=== PATIENT | female | born 1950 | race Caucasian/White ===

== ENCOUNTER 2019-08-08 12:43 | Emergency (ER) | payer MEDICARE, BC ==
[2019-08-08 13:04] VITALS: BP 137/66; PULSE 40
[2019-08-08] MEDS ORDERED: Oxymetazoline 0.05% Nasal Spray 30 ML Bottle NAS ONE (13:08)
[2019-08-08] MEDS ORDERED: Lidocaine 1% with EPINEPHrine 1:100,000 20 ML MDV INJECT ONE (13:08)
--- NOTE | 2019-08-08 14:57 | EDM.PDOC ---
ED HPI GENERAL MEDICAL PROBLEM - General Chief Complaint: ENT Problem Stated Complaint: NOSE BLEED Time Seen by Provider: 08/08/19 13:05 Source of Information: Reports: Patient History Limitations: Reports: No Limitations - History of Present Illness INITIAL COMMENTS - FREE TEXT/NARRATIVE: The patient presents with a nosebleed out of the left nostril. This started this morning and she cannot get it stopped. She is on coumadin and she is on home oxygen as well. She has no trauma to her nose. This will happen sometimes because or the oxygen. Onset: Sudden Duration: Hour(s): Location: Reports: Other (Left nostril) Severity: Moderate Improves with: Reports: None Worsens with: Reports: None Associated Symptoms: Reports: No Other Symptoms - Related Data Allergies Allergy/AdvReac Type Severity Reaction Status Date / Time No Known Allergies Allergy Verified 08/08/19 13:05 Home Meds: Home Meds Albuterol [Ventolin HFA] 2 puff INH Q6H 01/23/15 [History] Aspirin [Halfprin] 81 mg PO DAILY 01/23/15 [History] Digoxin 250 mcg PO DAILY 01/23/15 [History] Diltiazem HCl [Diltiazem 24Hr Cd] 240 mg PO DAILY 01/23/15 [History] Fluticasone/Salmeterol [Advair 100-50] 1 puff INH BID 01/23/15 [History] Metoprolol Succinate [Toprol XL] 50 mg PO DAILY 01/23/15 [History] Warfarin Sodium [Jantoven] 5 mg PO DAILY 01/23/15 [History] atorvaSTATin [Lipitor] 10 mg PO DAILY 01/23/15 [History] Furosemide 80 mg PO BID 08/08/19 [History] Levothyroxine 25 mcg PO DAILY 08/08/19 [History] Spironolactone [Aldactone] 25 mg PO DAILY 08/08/19 [History] cloNIDine [Catapres-TTS 1] 0.1 mg PO DAILY 08/08/19 [History] Past Medical History HEENT History: Reports: Impaired Vision Cardiovascular History: Reports: Afib, Heart Failure, High Cholesterol, Hypertension, Other (See Below) Other Cardiovascular History: bradycardia 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 History: 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: Endocrine/Metabolic History: Reports: Hypothyroidism - Past Surgical History Cardiovascular Surgical History: Reports: Valve Replacement Female Surgical History: Reports: Hysterectomy Social & Family History - Family History Family Medical History: Noncontributory - Tobacco Use Smoking Status *Q: Former Smoker Used Tobacco, but Quit: Yes Month/Year Tobacco Last Used: 07/2016 - Caffeine Use Caffeine Use: Reports: Coffee ED ROS ENT - Review of Systems Review Of Systems: See Below Constitutional: Reports: No Symptoms HEENT: Reports: Nosebleed (Left nostril) Respiratory: Reports: No Symptoms Cardiovascular: Reports: No Symptoms Endocrine: Reports: No Symptoms GI/Abdominal: Reports: No Symptoms : Reports: No Symptoms Musculoskeletal: Reports: No Symptoms ED EXAM, ENT - Physical Exam Exam: See Below Exam Limited By: No Limitations General Appearance: Alert, No Apparent Distress Ears: Normal External Exam Nose: Active Bleeding (Deep inside) Mouth/Throat: Normal Inspection Head: Atraumatic, Normocephalic Neck: Normal Inspection, Supple, Non-Tender Respiratory/Chest: No Respiratory Distress, Lungs Clear, Normal Breath Sounds Cardiovascular: Regular Rate, Rhythm, No Edema, No Murmur GI/Abdominal: Normal Bowel Sounds, Soft, Non-Tender, No Organomegaly, No Mass Back: Normal Inspection Extremities: Normal Inspection Neurological: Alert, Oriented, No Motor/Sensory Deficits ED ENT PROCEDURES - Epistaxis Procedure Indication: Epistaxis Recent anticoagulants/antiplatlets: Yes Uncontrolled HTN: No Recent septal/nasal surgery: No Site of bleeding: Left Nare Topical Meds: Phenylephrine, Other (TXA and lidocaine with epinephrine) Ice pack to area: No Chemical cautery: Silver Nitrate Topical Anterior Packing: Petrolatum Guaze Strip Complications: No Course - Vital Signs Last Recorded V/S: Last Vital Signs Temp 98.6 F 08/08/19 12:57 Pulse 40 L 08/08/19 12:57 Resp 23 H 08/08/19 12:57 BP 137/66 08/08/19 12:57 Pulse Ox 99 08/08/19 12:57 - Orders/Labs/Meds Labs: Laboratory Tests 08/08/19 Range/Units 13:29 PT 42.7 H (9.7-12.0) SECONDS INR 4.25 Meds: Medications Discontinued Medications Generic Name Dose Route Start Last Admin Trade Name Freq PRN Reason Stop Dose Admin Lidocaine/Epinephrine 20 ml 08/08/19 13:08 08/08/19 13:29 Xylocaine 1% With Epinephrine 1:100,000 INJECT 08/08/19 13:09 1 ml ONETIME ONE Administration Oxymetazoline HCl 5 ml 08/08/19 13:08 08/08/19 13:28 Nasal Decongestant [place] KG 08/08/19 13:09 5 ml ONETIME ONE Administration Tranexamic Acid 1,000 mg 08/08/19 13:07 08/08/19 13:28 Cyklokapron IVPUSH 08/08/19 13:08 100 mg ONETIME ONE Administration - Re-Assessments/Exams Free Text/Narrative Re-Assessment/Exam: 08/08/19 14:56 I tried to use silver nitrate to stop the bleeding but I could not. I then packed it with petroleum gauze. Her INR is elevated at 4.25. 08/08/19 15:28 She has very minimal bleeding at times. I will have her hold her coumadin tomorrow and have her INR rechecked on Sunday and have the packing taken out. Departure - Departure Time of Disposition: 15:30 Disposition: Home, Self-Care 01 Condition: Good Clinical Impression: Epistaxis - Discharge Information *PRESCRIPTION DRUG MONITORING PROGRAM REVIEWED*: Not Applicable *COPY OF PRESCRIPTION DRUG MONITORING REPORT IN PATIENT DIXON: Not Applicable Referrals: Myrna Coley MD [Primary Care Provider] - Forms: ED Department Discharge Additional Instructions: Do not take your coumadin tomorrow. Have your INR checked on Sunday. Have the packing taken out on Sunday. Please return if you are worse. Sepsis Event Note - Evaluation Sepsis Screening Result: No Definite Risk - Focused Exam Vital Signs: Vital Signs Temp Pulse Resp BP Pulse Ox 08/08/19 12:57 98.6 F 40 L 23 H 137/66 99 Date Exam was Performed: 08/08/19 Time Exam was Performed: 15:28
== END 2019-08-08 16:03 | disposition home or self-care (01) ==
LOC: JD.ED 12:43
DX: R04.0 Epistaxis (principal); I11.0 Hypertensive heart disease with heart failure; I50.9 Heart failure, unspecified; J44.9 Chronic obstructive pulmonary disease, unspecified; I48.91 Unspecified atrial fibrillation; E78.00 Pure hypercholesterolemia, unspecified; E03.9 Hypothyroidism, unspecified; Z79.82 Long term (current) use of aspirin; Z79.51 Long term (current) use of inhaled steroids; Z79.01 Long term (current) use of anticoagulants; Z79.899 Other long term (current) drug therapy; Z79.890 Hormone replacement therapy; Z87.891 Personal history of nicotine dependence
CPT/HCPCS: 30901; 36415; 85610; 99283; A9270; 99282

== ENCOUNTER 2019-08-10 06:27 | Emergency (ER) | payer MEDICARE, BC ==
[2019-08-10 06:56] VITALS: BP 145/65; PULSE 68
[2019-08-10] MEDS ORDERED: Oxymetazoline 0.05% Nasal Spray 30 ML Bottle NAS ONE (07:12)
--- NOTE | 2019-08-10 07:24 | EDM.PDOC ---
ED HPI GENERAL MEDICAL PROBLEM - General Chief Complaint: ENT Problem Stated Complaint: NOSE BLEED Time Seen by Provider: 08/10/19 06:58 Source of Information: Reports: Patient, RN Notes Reviewed - History of Present Illness INITIAL COMMENTS - FREE TEXT/NARRATIVE: 69-year-old female comes in with left-sided nosebleed. Troubles actually started Sunday 2 days ago. Evaluated here in the ED, had her left nares cauterized and packed. The packing fell out late last evening and she has had intermittent bleeding from the left side since that time. She is on Coumadin, her INR 2 days ago was elevated and the 4.3 range. Not taken her Coumadin yesterday or today. She is on home oxygen and that is not helping her using the nasal cannula 24 7. - Related Data Allergies Allergy/AdvReac Type Severity Reaction Status Date / Time No Known Allergies Allergy Verified 08/10/19 06:59 Home Meds: Home Meds Albuterol [Ventolin HFA] 2 puff INH Q6H 01/23/15 [History] Aspirin [Halfprin] 81 mg PO DAILY 01/23/15 [History] Digoxin 250 mcg PO DAILY 01/23/15 [History] Diltiazem HCl [Diltiazem 24Hr Cd] 240 mg PO DAILY 01/23/15 [History] Fluticasone/Salmeterol [Advair 100-50] 1 puff INH BID 01/23/15 [History] Metoprolol Succinate [Toprol XL] 50 mg PO DAILY 01/23/15 [History] Warfarin Sodium [Jantoven] 5 mg PO DAILY 01/23/15 [History] atorvaSTATin [Lipitor] 10 mg PO DAILY 01/23/15 [History] Furosemide 80 mg PO BID 08/08/19 [History] Levothyroxine 25 mcg PO DAILY 08/08/19 [History] Spironolactone [Aldactone] 25 mg PO DAILY 08/08/19 [History] cloNIDine [Catapres-TTS 1] 0.1 mg PO DAILY 08/08/19 [History] Cephalexin [Keflex] 500 mg PO Q8HR #10 capsule 08/10/19 [Rx] Past Medical History HEENT History: Reports: Impaired Vision Cardiovascular History: Reports: Afib, Heart Failure, High Cholesterol, Hypertension, Other (See Below) Other Cardiovascular History: bradycardia 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: Endocrine/Metabolic History: Reports: Hypothyroidism - Past Surgical History Cardiovascular Surgical History: Reports: Valve Replacement Female Surgical History: Reports: Hysterectomy Social & Family History - Family History Family Medical History: Noncontributory - Tobacco Use Smoking Status *Q: Never Smoker Second Hand Smoke Exposure: No - Caffeine Use Caffeine Use: Reports: Coffee - Recreational Drug Use Recreational Drug Use: No ED ROS ENT - Review of Systems Review Of Systems: See Below Constitutional: Denies: Fever, Chills, Diaphoresis HEENT: Reports: Nosebleed Respiratory: Reports: Shortness of Breath (Mild, chronically) Cardiovascular: Denies: Chest Pain GI/Abdominal: Denies: Abdominal Pain, Nausea, Vomiting Musculoskeletal: Reports: No Symptoms Skin: Reports: No Symptoms Neurological: Reports: No Symptoms ED EXAM, ENT - Physical Exam Exam: See Below General Appearance: Alert Nose: Other (Large amount of clot left nares, when the clots were blown out mild oozing septal area) Mouth/Throat: Normal Inspection Head: Atraumatic Neck: Supple Respiratory/Chest: No Respiratory Distress, Lungs Clear, Normal Breath Sounds Cardiovascular: Regular Rate, Rhythm Extremities: Normal Inspection Neurological: Alert, Oriented, No Motor/Sensory Deficits Skin: Warm, Dry, Normal Color ED ENT PROCEDURES - Epistaxis Procedure Indication: Epistaxis Recent anticoagulants/antiplatlets: Yes Uncontrolled HTN: No Site of bleeding: Left Nare Clearing of clots: Patient Blew Nose Topical Meds: Phenylephrine Anterior Packing: Other (7.5 cm AP nasal balloon) Course - Vital Signs Last Recorded V/S: Last Vital Signs Temp 98.7 F 08/10/19 06:52 Pulse 68 08/10/19 06:52 Resp 32 H 08/10/19 06:52 BP 145/65 H 08/10/19 06:52 Pulse Ox 89 L 08/10/19 06:52 - Orders/Labs/Meds Labs: Laboratory Tests 08/10/19 08/10/19 Range/Units 07:29 07:29 WBC 16.41 H (3.98-10.04) K/mm3 RBC 4.42 (3.98-5.22) M/mm3 Hgb 11.6 D (11.2-15.7) gm/dl Hct 37.9 (34.1-44.9) % MCV 85.7 (79.4-94.8) fl MCH 26.2 (25.6-32.2) pg MCHC 30.6 L (32.2-35.5) g/dl RDW Std Deviation 51.1 H (36.4-46.3) fL Plt Count 418 H D (182-369) K/mm3 MPV 9.3 L (9.4-12.3) fl Neut % (Auto) 79.5 H (34.0-71.1) % Lymph % (Auto) 11.6 L (19.3-51.7) % [place] % (Auto) 5.7 (4.7-12.5) % Eos % (Auto) 2.9 (0.7-5.8) Baso % (Auto) 0.1 (0.1-1.2) % Neut # (Auto) 13.04 H (1.56-6.13) K/mm3 Lymph # (Auto) 1.91 (1.18-3.74) K/mm3 [place] # (Auto) 0.94 H (0.24-0.36) K/mm3 Eos # (Auto) 0.47 H (0.04-0.36) K/mm3 Baso # (Auto) 0.02 (0.01-0.08) K/mm3 Manual Slide Review Normal smear PT 24.5 H D (9.7-12.0) SECONDS INR 2.36 Meds: Medications Discontinued Medications Generic Name Dose Route Start Last Admin Trade Name Duranq PRN Reason Stop Dose Admin Cephalexin 500 mg 08/10/19 08:29 Keflex PO 08/10/19 08:30 ONETIME ONE Cocaine HCl 4 ml 08/10/19 07:12 08/10/19 07:28 Cocaine Hcl TOP 08/10/19 07:13 4 ml ONETIME ONE Administration Oxymetazoline HCl 2 ml 08/10/19 07:12 08/10/19 07:31 Nasal Decongestant [place] KG 08/10/19 07:13 2 ml ONETIME ONE Administration - Re-Assessments/Exams Free Text/Narrative Re-Assessment/Exam: 08/10/19 08:38 I did work with some Afrin nasal spray left nares and then also 4% cocaine solution with cotton. She continued to bleed from left posterior nares after that so did place a 7.5 cm AP balloon Rhino Rocket. Rated procedure well, no further bleeding. INR came back at 2.36 today. Discharge instructions as documented. Departure - Departure Time of Disposition: 08:32 Disposition: Home, Self-Care 01 Condition: Fair Clinical Impression: Epistaxis - Discharge Information Prescriptions: Cephalexin [Keflex] 500 mg PO Q8HR #10 capsule Referrals: Myrna Coley MD [Primary Care Provider] - Forms: ED Department Discharge Additional Instructions: Your INR today was 2.36. Do not take your coumadin today as discussed but resume that tomorrow usual dosage. Cephalexin 500 mg 3 times daily. Prescription has been sent electronically to [facility]. Rest. Drink plenty of water to maintain hydration. Your balloon should come out Sunday or . That can be done by one of the clinic providers or you can return to the ED to have it removed if the clinic does not work out. Return to ED as needed. Sepsis Event Note - Evaluation Sepsis Screening Result: No Definite Risk - Focused Exam Vital Signs: Vital Signs Temp Pulse Resp BP Pulse Ox 08/10/19 06:52 98.7 F 68 32 H 145/65 H 89 L Date Exam was Performed: 08/10/19 Time Exam was Performed: 08:37
[2019-08-10] MEDS ORDERED: Cephalexin 500 MG Cap PO ONE (08:29)
== END 2019-08-10 08:46 | disposition home or self-care (01) ==
LOC: JD.ED 06:27
DX: R04.0 Epistaxis (principal); I11.0 Hypertensive heart disease with heart failure; I50.9 Heart failure, unspecified; I48.91 Unspecified atrial fibrillation; J44.9 Chronic obstructive pulmonary disease, unspecified; E03.9 Hypothyroidism, unspecified; Z79.01 Long term (current) use of anticoagulants; Z79.82 Long term (current) use of aspirin; Z79.899 Other long term (current) drug therapy
CPT/HCPCS: 30901; 36415; 85025; 85610; 99283; A9270

== ENCOUNTER 2019-08-12 10:50 | Emergency (ER) | payer MEDICARE, BC ==
--- NOTE | 2019-08-12 11:42 | EDM.PDOC ---
ED HPI GENERAL MEDICAL PROBLEM - General Chief Complaint: ENT Problem Stated Complaint: REMOVAL OF PACKING FOR NOSEBLEED Time Seen by Provider: 08/12/19 11:22 Source of Information: Reports: Patient, Old Records, RN Notes Reviewed History Limitations: Reports: No Limitations - History of Present Illness INITIAL COMMENTS - FREE TEXT/NARRATIVE: Patient is a 69-year-old female who presents to the ED for removal of a Rhino Rocket was placed a few days ago. This was done in this ER by Dr. Up. This did achieve appropriate hemostasis at this time. The triage nurse did remove the packing at her time of triage, but the left naris did start bleeding again. So a nasal clamp was placed to apply pressure. Patient states that she is on blood thinners but has not been taking her Coumadin for the past few days , and she did resume taking her Coumadin as previously scheduled today. She does note that over the past few days it's been pretty rough, she is had a headache, not been able to sleep much and has had to sleep in her recliner due to the Rhino Rocket and subsequent pain. Otherwise she has no complaints. Patient is oxygen dependent as well, and does wear portal oxygen concentrator via nasal cannula. - Related Data Allergies Allergy/AdvReac Type Severity Reaction Status Date / Time No Known Allergies Allergy Verified 08/10/19 06:59 Home Meds: Home Meds Albuterol [Ventolin HFA] 2 puff INH Q6H 01/23/15 [History] Aspirin [Halfprin] 81 mg PO DAILY 01/23/15 [History] Digoxin 250 mcg PO DAILY 01/23/15 [History] Diltiazem HCl [Diltiazem 24Hr Cd] 240 mg PO DAILY 01/23/15 [History] Fluticasone/Salmeterol [Advair 100-50] 1 puff INH BID 01/23/15 [History] Metoprolol Succinate [Toprol XL] 50 mg PO DAILY 01/23/15 [History] Warfarin Sodium [Jantoven] 5 mg PO DAILY 01/23/15 [History] atorvaSTATin [Lipitor] 10 mg PO DAILY 01/23/15 [History] Furosemide 80 mg PO BID 08/08/19 [History] Levothyroxine 25 mcg PO DAILY 08/08/19 [History] Spironolactone [Aldactone] 25 mg PO DAILY 08/08/19 [History] cloNIDine [Catapres-TTS 1] 0.1 mg PO DAILY 08/08/19 [History] Cephalexin [Keflex] 500 mg PO Q8HR #10 capsule 08/10/19 [Rx] Past Medical History HEENT History: Reports: Epistaxis, Impaired Vision Cardiovascular History: Reports: Afib, Heart Failure, High Cholesterol, Hypertension, Other (See Below) Other Cardiovascular History: bradycardia 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 Denies: Sinus Problem Respiratory: Denies: Shortness of Breath Cardiovascular: Denies: Chest Pain Hematologic/Lymphatic: Reports: Easy Bleeding (on coumadin) ED EXAM, ENT - Physical Exam Exam: See Below Exam Limited By: No Limitations General Appearance: Alert, WD/WN, No Apparent Distress Nose: Active Bleeding (L nare, RN placed clamp for pressure at time of triage after packing was removed, this instantly started bleeding after the packing was removed) Respiratory/Chest: No Respiratory Distress, Lungs Clear, Normal Breath Sounds, No Accessory Muscle Use, Chest Non-Tender Cardiovascular: Normal Peripheral Pulses, Regular Rate, Rhythm, No Murmur Extremities: Normal Inspection, Normal Capillary Refill Neurological: Alert, Oriented, Normal Cognition, No Motor/Sensory Deficits Psychiatric: Normal Affect, Normal Mood Skin: Warm, Dry, Intact, Normal Color, No Rash Course - Vital Signs Last Recorded V/S: Last Vital Signs Temp 97.8 F 08/12/19 11:19 Pulse 73 08/12/19 11:19 Resp 16 08/12/19 11:19 BP 144/87 H 08/12/19 11:19 Pulse Ox 95 08/12/19 11:19 - Orders/Labs/Meds Labs: Laboratory Tests 08/12/19 Range/Units 11:54 PT 18.8 H (9.7-12.0) SECONDS INR 1.78 - Re-Assessments/Exams Free Text/Narrative Re-Assessment/Exam: 08/12/19 11:41 Patient presents to the ED for packing removal. Unfortunately her nose did start bleeding from the left nare when the packing was removed. Pressure has been applied, it is likely that if the pressure does not stop the bleed, we might need to replace a Rhino Rocket and have her follow-up with ENT for removal of this in a few days rather than coming to the ER for removal. 08/12/19 12:27 Patient was reevaluated at bedside, and she does not have the clamp on her nose and the bleeding has seemed to stop at this time. 08/12/19 13:12 Labs have been ran, and PT is 18.8 and INR is 1.78. Departure - Departure Time of Disposition: 13:21 Disposition: Home, Self-Care 01 Condition: Fair Clinical Impression: Encounter for removal of nasal pack, Epistaxis - Discharge Information *PRESCRIPTION DRUG MONITORING PROGRAM REVIEWED*: No *COPY OF PRESCRIPTION DRUG MONITORING REPORT IN PATIENT DIXON: No Instructions: Nosebleed, [id number] Referrals: Myrna Coley MD [Primary Care Provider] - Forms: ED Department Discharge Additional Instructions: You were evaluated in the ER today regarding your left-sided nasal packing. This was taken out, and subsequently you started bleeding from the left nare again. Pressure was applied, and this did stop the bleeding at this time. Please refrain from taking your warfarin dose for the next 2 days, to help try to prevent more nasal bleeding. You may use your saline moisturizing gel to your naris as previously directed, please be gentle while doing this as to not aggravate the tissue in your nose to prevent further bleeding. Please return to the ER if your symptoms change or worsen. Sepsis Event Note - Evaluation Sepsis Screening Result: No Definite Risk - Focused Exam Vital Signs: Vital Signs Temp Pulse Resp BP Pulse Ox 08/12/19 11:19 97.8 F 73 16 144/87 H 95 Date Exam was Performed: 08/12/19 Time Exam was Performed: 13:21
[2019-08-12 13:54] VITALS: BP 148/56; PULSE 62
== END 2019-08-12 13:45 | disposition home or self-care (01) ==
LOC: JD.ED 10:50
DX: R04.0 Epistaxis (principal); Z48.00 Encounter for change or removal of nonsurgical wound dressing; I11.0 Hypertensive heart disease with heart failure; I50.9 Heart failure, unspecified; E78.00 Pure hypercholesterolemia, unspecified; I48.91 Unspecified atrial fibrillation; J44.9 Chronic obstructive pulmonary disease, unspecified; E03.9 Hypothyroidism, unspecified; Z79.82 Long term (current) use of aspirin; Z79.01 Long term (current) use of anticoagulants; Z79.899 Other long term (current) drug therapy
CPT/HCPCS: 36415; 85610; 99282; 99283

== ENCOUNTER 2020-08-13 23:54 | Emergency (ER) | payer MEDICARE, BC ==
[2020-08-14 00:02] VITALS: PULSE 58
--- NOTE | 2020-08-14 00:17 | EDM.PDOC ---
ED HPI GENERAL MEDICAL PROBLEM - General Chief Complaint: Neuro Symptoms/Deficits Stated Complaint: [facility] Time Seen by Provider: 08/13/20 23:57 - History of Present Illness INITIAL COMMENTS - FREE TEXT/NARRATIVE: 70-year-old female presents the emergency room brought in by EMS with worsening headache and left-sided weakness. This headache probably started Sunday and has progressively gotten worse. She had some weakness on the left side associated with this. The exact onset of this is unclear. It was definitely noticeable this morning, Sunday morning. The patient has fallen several times today just to the point where the cannot help her anymore. The patient has a history of A. fib and is on Coumadin. Also has a mechanical heart valve, the cannot recall what type but says it stainless steel. She has not had any chest pain or chest pressure and other than her headache does not hurt anywhere. - Related Data Allergies Allergy/AdvReac Type Severity Reaction Status Date / Time No Known Allergies Allergy Verified 08/14/20 00:03 Home Meds: Home Meds Albuterol [Ventolin HFA] 2 puff INH Q6H 01/23/15 [History] Digoxin 250 mcg PO ASDIRECTED 01/23/15 [History] Fluticasone/Salmeterol [Advair 100-50] 1 puff INH BID 01/23/15 [History] Warfarin Sodium [Jantoven] 5 mg PO DAILY 01/23/15 [History] atorvaSTATin [Lipitor] 10 mg PO DAILY 01/23/15 [History] Furosemide 80 mg PO BID 08/08/19 [History] Levothyroxine 25 mcg PO ASDIRECTED 08/08/19 [History] Spironolactone [Aldactone] 25 mg PO DAILY 08/08/19 [History] Digoxin 125 mcg PO ASDIRECTED 08/14/20 [History] Levothyroxine Sodium [Levothyroxine] 50 mcg PO ASDIRECTED 08/14/20 [History] Metoprolol Succinate [Toprol XL] 25 mg PO BID 08/14/20 [History] Nitroglycerin [Nitrostat] 0.4 mg SL DAILY PRN 08/14/20 [History] amLODIPine Besylate [Amlodipine Besylate] 10 mg PO DAILY 08/14/20 [History] metFORMIN [Glucophage] 500 mg PO DAILY 08/14/20 [History] Past Medical History HEENT History: Reports: Epistaxis, Impaired Vision Cardiovascular History: Reports: Afib, Heart Failure, High Cholesterol, Hyp ertension, Other (See Below) Other Cardiovascular History: bradycardia Respiratory History: Reports: COPD [employer] History: Reports: Endocrine/Metabolic History: Reports: Hypothyroidism - Past Surgical History Cardiovascular Surgical History: Reports: Valve Replacement Female Surgical History: Reports: Hysterectomy Social & Family History - Family History Family Medical History: No Pertinent Family History - Caffeine Use Caffeine Use: Reports: Coffee ED ROS GENERAL - Review of Systems Review Of Systems: See Below Constitutional: Reports: Weakness, Fatigue. Denies: Fever HEENT: Reports: No Symptoms Respiratory: Reports: No Symptoms Cardiovascular: Reports: Dyspnea on Exertion, Edema. Denies: Chest Pain Endocrine: Reports: No Symptoms GI/Abdominal: Reports: No Symptoms : Reports: No Symptoms Musculoskeletal: Reports: No Symptoms Skin: Reports: No Symptoms Neurological: Reports: Headache, Weakness, Gait Disturbance Psychiatric: Reports: No Symptoms Hematologic/Lymphatic: Reports: Easy Bruising Immunologic: Reports: No Symptoms ED EXAM, NEURO - Physical Exam Exam: See Below Exam Limited By: No Limitations General Appearance: Alert, Moderate Distress (Little slow to respond but generally doing okay), Other Eye Exam: Bilateral Eye: EOMI, Normal Inspection, PERRL Ears: Normal External Exam, Normal Canal, Hearing Grossly Normal, Normal TMs Throat/Mouth: Normal Inspection, Normal Lips, Normal Teeth, Normal Gums, Normal Oropharynx, Normal Voice, No Airway Compromise Head Exam: Atraumatic, Normocephalic Neck: Normal Inspection. No: Lymphadenopathy (L), Lymphadenopathy (R) Respiratory/Chest: No Respiratory Distress, Lungs Clear, Normal Breath Sounds Cardiovascular: Normal Peripheral Pulses, Bradycardia (Usually in the 50s symmetry she has frequent PVCs multifocal at times), Systolic Murmur (It is difficult to assess his murmur with everything going on in the exam room) GI/Abdominal: Normal Bowel Sounds, Soft, Non-Tender Neurological: Other (Has some weakness on the left side this is definitely noticeable but she still retained most of her muscle function) Back Exam: Normal Inspection. No: CVA Tenderness (L), CVA Tenderness (R) Extremities: Other (2-3+ pitting edema bilateral apparently this is ongoing) Psychiatric: Normal Affect Skin Exam: Warm, Dry, Intact Course - Vital Signs Last Recorded V/S: Last Vital Signs Temp 36.3 C 08/13/20 23:57 Pulse 58 L 08/13/20 23:57 Resp 18 08/13/20 23:57 BP 134/55 L 08/14/20 00:15 Pulse Ox 91 L 08/14/20 00:00 - Orders/Labs/Meds Orders: Active Orders 24 hr Category Date Time Status EKG Documentation Completion [RC] STAT Care 08/14/20 00:05 Active Chest 1V Frontal [CR] Stat Exams 08/14/20 00:05 Taken Head wo Cont [CT] Routine Exams 08/14/20 00:15 Taken Labs: Laboratory Tests 08/13/20 08/13/20 08/13/20 Range/Units 23:57 23:57 23:57 WBC 12.08 H (3.98-10.04) K/mm3 RBC 5.34 H (3.98-5.22) M/mm3 Hgb 12.9 (11.2-15.7) gm/dl Hct 42.2 (34.1-44.9) % MCV 79.0 L D (79.4-94.8) fl MCH 24.2 L (25.6-32.2) pg MCHC 30.6 L (32.2-35.5) g/dl RDW Std Deviation 50.7 H (36.4-46.3) fL Plt Count 479 H (182-369) K/mm3 MPV 8.8 L (9.4-12.3) fl Neut % (Auto) 84.2 H (34.0-71.1) % Lymph % (Auto) 7.5 L (19.3-51.7) % Wirt % (Auto) 7.0 (4.7-12.5) % Eos % (Auto) 0.9 (0.7-5.8) Baso % (Auto) 0.2 (0.1-1.2) % Neut # (Auto) 10.18 H (1.56-6.13) K/mm3 Lymph # (Auto) 0.90 L (1.18-3.74) K/mm3 Wirt # (Auto) 0.84 H (0.24-0.36) K/mm3 Eos # (Auto) 0.11 (0.04-0.36) K/mm3 Baso # (Auto) 0.02 (0.01-0.08) K/mm3 Manual Slide Review Abnormal smear PT > 90.0 H* (9.7-12.0) SECONDS INR > 8.00 H* APTT 62.3 H (21.7-31.4) SECONDS Sodium 142 (136-145) mEq/L Potassium 4.1 (3.5-5.1) mEq/L Chloride 102 (98-107) mEq/L Carbon Dioxide 34 H (21-32) mEq/L Anion Gap 10.1 (5-15) BUN 17 (7-18) mg/dL Creatinine 1.4 H (0.55-1.02) mg/dL Est Cr Clr Drug Dosing 33.16 mL/min Estimated GFR (MDRD) 37 (>60) mL/min BUN/Creatinine Ratio 12.1 L (14-18) Glucose 130 H (83-115) mg/dL POC Glucose (83-110) mg/dL Calcium 9.4 (8.5-10.1) mg/dL Magnesium (1.8-2.4) mg/dl Total Bilirubin 0.5 (0.2-1.0) mg/dL AST 25 (15-37) U/L ALT 25 (14-59) U/L Alkaline Phosphatase 138 H (46-116) U/L Troponin I < 0.017 (0.00-0.056) ng/mL NT-Pro-B Natriuret Pep (0-125) pg/mL Total Protein 7.9 (6.4-8.2) g/dl Albumin 3.4 (3.4-5.0) g/dl Globulin 4.5 gm/dL Albumin/Globulin Ratio 0.8 L (1-2) Digoxin (0.9-2.0) ng/mL SARS-CoV-2 RNA (STEFANIE) (NEGATIVE) 08/13/20 08/13/20 08/13/20 Range/Units 23:57 23:57 23:57 WBC (3.98-10.04) K/mm3 RBC (3.98-5.22) M/mm3 Hgb (11.2-15.7) gm/dl Hct (34.1-44.9) % MCV (79.4-94.8) fl MCH (25.6-32.2) pg MCHC (32.2-35.5) g/dl RDW Std Deviation (36.4-46.3) fL Plt Count (182-369) K/mm3 MPV (9.4-12.3) fl Neut % (Auto) (34.0-71.1) % Lymph % (Auto) (19.3-51.7) % Wirt % (Auto) (4.7-12.5) % Eos % (Auto) (0.7-5.8) Baso % (Auto) (0.1-1.2) % Neut # (Auto) (1.56-6.13) K/mm3 Lymph # (Auto) (1.18-3.74) K/mm3 Wirt # (Auto) (0.24-0.36) K/mm3 Eos # (Auto) (0.04-0.36) K/mm3 Baso # (Auto) (0.01-0.08) K/mm3 Manual Slide Review PT (9.7-12.0) SECONDS INR APTT (21.7-31.4) SECONDS Sodium (136-145) mEq/L Potassium (3.5-5.1) mEq/L Chloride (98-107) mEq/L Carbon Dioxide (21-32) mEq/L Anion Gap (5-15) BUN (7-18) mg/dL Creatinine (0.55-1.02) mg/dL Est Cr Clr Drug Dosing mL/min Estimated GFR (MDRD) (>60) mL/min BUN/Creatinine Ratio (14-18) Glucose (83-115) mg/dL POC Glucose (83-110) mg/dL Calcium (8.5-10.1) mg/dL Magnesium 2.4 (1.8-2.4) mg/dl Total Bilirubin (0.2-1.0) mg/dL AST (15-37) U/L ALT (14-59) U/L Alkaline Phosphatase (46-116) U/L Troponin I (0.00-0.056) ng/mL NT-Pro-B Natriuret Pep 2420 H (0-125) pg/mL Total Protein (6.4-8.2) g/dl Albumin (3.4-5.0) g/dl Globulin gm/dL Albumin/Globulin Ratio (1-2) Digoxin 1.5 (0.9-2.0) ng/mL SARS-CoV-2 RNA (STEFANIE) (NEGATIVE) 08/14/20 08/14/20 Range/Units 00:00 00:02 WBC (3.98-10.04) K/mm3 RBC (3.98-5.22) M/mm3 Hgb (11.2-15.7) gm/dl Hct (34.1-44.9) % MCV (79.4-94.8) fl MCH (25.6-32.2) pg MCHC (32.2-35.5) g/dl RDW Std Deviation (36.4-46.3) fL Plt Count (182-369) K/mm3 MPV (9.4-12.3) fl Neut % (Auto) (34.0-71.1) % Lymph % (Auto) (19.3-51.7) % Wirt % (Auto) (4.7-12.5) % Eos % (Auto) (0.7-5.8) Baso % (Auto) (0.1-1.2) % Neut # (Auto) (1.56-6.13) K/mm3 Lymph # (Auto) (1.18-3.74) K/mm3 Wirt # (Auto) (0.24-0.36) K/mm3 Eos # (Auto) (0.04-0.36) K/mm3 Baso # (Auto) (0.01-0.08) K/mm3 Manual Slide Review PT (9.7-12.0) SECONDS INR APTT (21.7-31.4) SECONDS Sodium (136-145) mEq/L Potassium (3.5-5.1) mEq/L Chloride (98-107) mEq/L Carbon Dioxide (21-32) mEq/L Anion Gap (5-15) BUN (7-18) mg/dL Creatinine (0.55-1.02) mg/dL Est Cr Clr Drug Dosing mL/min Estimated GFR (MDRD) (>60) mL/min BUN/Creatinine Ratio (14-18) Glucose (83-115) mg/dL POC Glucose 154 H (83-110) mg/dL Calcium (8.5-10.1) mg/dL Magnesium (1.8-2.4) mg/dl Total Bilirubin (0.2-1.0) mg/dL AST (15-37) U/L ALT (14-59) U/L Alkaline Phosphatase (46-116) U/L Troponin I (0.00-0.056) ng/mL NT-Pro-B Natriuret Pep (0-125) pg/mL Total Protein (6.4-8.2) g/dl Albumin (3.4-5.0) g/dl Globulin gm/dL Albumin/Globulin Ratio (1-2) Digoxin (0.9-2.0) ng/mL SARS-CoV-2 RNA (STEFANIE) Negative (NEGATIVE) Meds: Medications Discontinued Medications Generic Name Dose Route Start Last Admin Trade Name Freq PRN Reason Stop Dose Admin Factor IX (Pha) 200 unit 08/14/20 00:46 Kcentra IV 08/14/20 00:47 NOW STA Factor IX (Pha) 2,000 unit 08/14/20 00:46 08/14/20 01:12 Kcentra IV 08/14/20 00:47 2,000 unit NOW STA Administration Factor IX (Pha) 2,000 unit 08/14/20 01:11 08/14/20 01:13 Kcentra IV 08/14/20 01:12 Not Given NOW STA - Re-Assessments/Exams Free Text/Narrative Re-Assessment/Exam: 08/14/20 01:11 Patient was taken to CT where she had an obvious left frontal lobe hemorrhage. Interparenchymal radiology believes there is either an underlying mass or perhaps she bled at an old infarct they believe the hemorrhage is acute to subacute. Case was discussed with Herb in [facility] Dr. Kruse on-call neurosurgeon recommended transferring. Case was discussed with Dr. Gutierrez in the emergency room who accepted the patient case in detail was discussed with Dr. Gutierrez. Patient's INR is grossly elevated at greater than 8 she is getting Kcentra. Patient has a mild bradycardia rate in the 50s sometimes into the 40s. At times she has frequent PVCs the rhythm is irregularly irregular. Awaiting her dig level but this is concerning. Her blood pressure has been in the 120s to 130s systolic occasionally in the 140s or little higher on rare occasion. At this point she is getting loaded up for transfer. 08/14/20 01:20 Her dig level did come back at 1.52 with a normal potassium magnesium and calcium I am not sure this is a problem and needs to be addressed the second with everything else that is going on. I did relay the information to Dr. Gutierrez. The patient is getting loaded up to leave at this time. Departure - Departure Time of Disposition: 01:00 Disposition: DC/Tfer to [facility] 02 Clinical Impression: Hemorrhagic stroke, Warfarin-induced coagulopathy - Discharge Information Referrals: PCP,None [Primary Care Provider] - Forms: ED Department Discharge Sepsis Event Note (ED) - Evaluation Sepsis Screening Result: No Definite Risk - Focused Exam Vital Signs: Vital Signs Temp Pulse Resp BP Pulse Ox Pulse Ox 08/14/20 00:15 134/55 L 08/14/20 00:00 91 L 08/13/20 23:57 36.3 C 58 L 18 88 L - My Orders Last 24 Hours: My Active Orders 08/14/20 00:05 EKG Documentation Completion [RC] STAT Chest 1V Frontal [CR] Stat 08/14/20 00:15 Head wo Cont [CT] Routine - Assessment/Plan Last 24 Hours: My Active Orders 08/14/20 00:05 EKG Documentation Completion [RC] STAT Chest 1V Frontal [CR] Stat 08/14/20 00:15 Head wo Cont [CT] Routine
[2020-08-14 00:18] VITALS: BP 134/55
[2020-08-14] MEDS ORDERED: Factor IX Complex Human 500 UNIT VIAL IV STA ×3 (00:46→01:11)
--- NOTE | 2020-08-16 08:50 | CT ---
Head CT Technique: Multiple axial sections through the brain were obtained. Intravenous contrast was not utilized. Reconstructed coronal and sagittal images were obtained. Findings: Mostly rim-enhancing area of hemorrhage is seen within the right frontal region. Central area of this region shows minimal area of increased density. Several other small areas of hemorrhage are seen around this region. This abnormality measures approximately 5.7 x 4.9 cm. There is mild surrounding edema seen around this lesion. There is midline shift being seen up to approximately 9.5 mm. Abnormality causes mass-effect upon the superior right frontal region causing effacement of the sulci over the convexities. Bone window settings were reviewed which show no acute calvarial abnormality. Visualized paranasal sinuses and mastoid sinuses show nothing acute. Impression: 1. Large hemorrhage within the right frontal region with central area believed to represent a mass. Several smaller adjacent hemorrhages are seen. 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 2. Mass-effect is noted by this lesion with midline shift and sulci showing effacement over the convexity. 3. No other acute abnormality is appreciated. Note: Recommend reevaluation by MRI. Diagnostic code #9 I agree with preliminary report from [facility], finalized on 08/14/20, 1:27 AM SAAS ARCHITECT ILENE
--- NOTE | 2020-08-16 12:31 | CR ---
Chest: Portable view of the chest was obtained. Comparison: Previous chest x-ray of 01/23/15. Heart is enlarged. Prior sternotomy is noted with prosthetic heart valve. Slight areas of atelectasis are noted within the left mid and lower lung. Pulmonary vessels are slightly increased most likely representing mild pulmonary vascular congestion. Impression: 1. Slight areas of atelectasis within the left lung. 2. Cardiomegaly with slight pulmonary vascular congestion. Diagnostic code #3 MTDD
== END 2020-08-14 01:47 ==
LOC: JD.ED 23:54
DX: I62.9 Nontraumatic intracranial hemorrhage, unspecified (principal); D68.9 Coagulation defect, unspecified; T45.515A Adverse effect of anticoagulants, initial encounter; I11.0 Hypertensive heart disease with heart failure; I50.9 Heart failure, unspecified; I48.91 Unspecified atrial fibrillation; E78.00 Pure hypercholesterolemia, unspecified; J44.9 Chronic obstructive pulmonary disease, unspecified; E03.9 Hypothyroidism, unspecified; Z79.899 Other long term (current) drug therapy; Z20.822 Contact with and (suspected) exposure to COVID-19
CPT/HCPCS: 36415; 70450; 71045; 80053; 80162; 82962; 83735; 83880; 84484; 85025; 85610; 85730; 93005; 99285; C9132; U0002